=== PATIENT | male | born 1955 | race Caucasian/White ===

== ENCOUNTER 2022-12-19 18:38 | Emergency (ER) | payer MEDICARE, SELFPAY ==
--- NOTE | ~2022-12-19 | XR_ITS ---
EXAMINATION: XR chest 1V portable DATE: 12/19/2022 19:51 INDICATION: 12/19/2022 TECHNIQUE: frontal view of the chest was obtained with repeat frontal view obtained with alon marke rs. COMPARISON: None FINDINGS: Minimal linear discoid atelectasis/scarring at the bilateral lung bases. No other airspace opacities, pulmonary edema, pleural effusion or pneumothorax. Nipple shadow projects between the anterior left fifth and sixth ribs. The cardiomediastinal silhouette is normal. Moderate thoracic spondylosis. IMPRESSION: 1. No acute cardiopulmonary disease. Reviewed, dictated and finalized at location A.
--- NOTE | 2022-12-19 18:39 | ECG_ITS ---
Measurements Intervals Wing Rate: 90 P: 34 KS: 171 QRS: 11 QRSD: 95 T: 57 QT: 352 QTc: 431 Interpretive Statements SINUS RHYTHM ATRIAL PREMATURE COMPLEX INCOMPLETE RIGHT BUNDLE BRANCH BLOCK CONSIDER INFERIOR INFARCT, AGE INDETERMINATE BASELINE ARTIFACT- II, III, AVR, AVF ABNORMAL ECG NO PREVIOUS ECG AVAILABLE FOR COMPARISON Electronically Signed On 12-19-2022 18:54:09 CDT by Latrell Arnold D.O.
[2022-12-19 18:41] VITALS: BP 139/89; PULSE 88; RESP 22; TEMP 36.3; O2SAT 100
[2022-12-19 19:00] LABS: Basophils Percent Auto 0.4 % (0.2-1.2); Eosinophils Absolute Auto 0.2 K/mm3 (0-0.3); Eosinophils Percent Auto 2.3 % (0-4.4); Hematocrit 44.8 % (42.0-52.0); Hemoglobin 15.6 g/dL (14.0-18.0); Immature Granulocyte Absolute 0.04 K/mm3 (0.00-0.031); Immature Granulocyte Percent A 0.4 % (0-0.5); Lymphocytes Absolute Auto 3.73 K/mm3 (0.9-3.2); Lymphocytes Percent Auto 37.4 % (18.3-44.2); Mean Corpuscular HGB Conc 34.8 g/dl (32-36); Mean Corpuscular Hemoglobin 31.6 pg (26-34); Mean Corpuscular Volume 90.7 fl (80-100); Mean Platelet Volume 9.3 fl (7.4-10.4); Monocytes Absolute Auto 0.3 K/mm3 (0.1-0.6); Monocytes Percent Auto 3.2 % (2.6-8.5); Neutrophils Absolute Auto 5.6 K/mm3 (1.3-6.7); Neutrophils Percent Auto 56.3 % (45.5-73.1); Platelet Count Result 213 k/mm3 (150-375); Red Blood Count 4.94 M/mm3 (4.6-6.20); Red Cell Distribution Width 12.6 % (11.5-14.5)
[2022-12-19 19:09] LABS: Alanine Aminotransferase 33 U/L (6-50); Albumin Level 4.8 g/dL (3.5-5.1); Alkaline Phosphatase 83 U/L (38-126); Anion Gap 9 mmol/L (8-16); Aspartate Amino Transferase 36 U/L (17-59); Bilirubin,Total 0.5 mg/dL (0.2-1.3); Blood Urea Nitrogen 19 mg/dL (9-20); Calcium 9.3 mg/dL (8.4-10.2); Carbon Dioxide 28 mmol/L (22-30); Chloride 100 mmol/L (98-107); Estimated CRCL calculation 84 ml/min; Estimated Glomerular Filt Rate > 60; Glucose 111 mg/dL (65-110); Potassium 3.9 mmol/L (3.4-5.0); Sodium 137 mmol/L (137-145)
[2022-12-19] MEDS: SODIUM CHLORIDE 0.9% IV 2,000 ML 999 ML IV CONT (19:15)
[2022-12-19 19:34] LABS: NT Pro B Type Natriuretic Pept < 20 pg/mL (19.9-100); Troponin I < 0.012 ng/mL (0.000-0.034)
--- NOTE | 2022-12-19 19:39 | ED.GENADULT ---
HPI - General Adult General Chief complaint: Syncope Stated complaint: near syncope Time Seen by Provider: 12/19/22 18:56 History of Present Illness HPI narrative: This is a 67-year-old male presenting ED with a chief complaint of syncope. Patient says that he got up to go to the bathroom as he felt like he was going to have diarrhea. When he got to the bathroom he had an episode of diarrhea but then also felt nauseous. He then believes that he fainted on the toilet. It took him a couple minutes but then he quickly returned to baseline. At this time his only complaint is subjective shortness of breath. the patient notes that he did give a double dose of blood on Wednesday. He has then been working out in the sun and 100 degree heat the last 2 days and has not had anything to eat today outside of some cashews. He is denying fever, chills, chest pain, difficulty breathing, abdominal pain. Related Data Allergies Allergy/AdvReac Type Severity Reaction Status Date / Time No Known Allergies Allergy Unverified 08/22/18 19:56 [facility] Past Medical History Medical History (Updated 12/19/22 @ 19:46 by Ephraim Owens MD) Hypertension Exam Narrative: APPEARANCE: No apparent distress. Well-appearing Head: atraumatic. EYES: EOMI, NOSE: Atraumatic NECK: Trachea midline RESPIRATORY: No increased rate of breathing clear to auscultation CARDIOVASCULAR: RRR, no peripheral edema ABDOMINAL: Non-distended soft no guarding rebound MUSCULOSKELETAl: No obvious deformities NEURO: Alert. Moving 4/4 extremities SKIN:: Warm, dry. Normal color PSYCHIATRIC: Normal affect Course Vital Signs Vital signs: Vital Signs Temperature 97.3 F L 12/19/22 18:41 Pulse Rate 88 12/19/22 18:41 Respiratory Rate 22 H 12/19/22 18:41 Blood Pressure 139/89 12/19/22 18:41 Pulse Oximetry 100 12/19/22 18:41 Oxygen Delivery Room Air 12/19/22 18:41 Temperature 97.3 F L 12/19/22 18:41 Pulse Rate 88 12/19/22 18:41 Respiratory Rate 22 H 12/19/22 18:41 Blood Pressure 139/89 12/19/22 18:41 Pulse Oximetry 100 12/19/22 18:41 Oxygen Delivery Room Air 12/19/22 18:47 Medical Decision Making MDM Narrative Medical decision making narrative: -Presentation: 67-year-old male presenting with syncopal event on the toilet. Over last several days he has multiple reasons to be dehydrated including giving blood, working out in 100 degree heat and not eating today. He was concerned about his heart. Will do a cardiac lab work EKG chest x-ray and fluid rehydration and then reassess the patient. 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 Metabolic panel unremarkable. Troponin is undetectable x2. BNP undetectable. viral swabs negative. Chest x-ray unremarkable. -Discussion of Management/Consultants: None -Dx tests considered but not ordered: none -Procedures: none -Interventions: 2 L normal saline -Shared decision making / Disposition: patient's workup was negative. He is rehydrated here in the emergency department and is feeling better. This time comfortable discharging home with primary care follow-up. He has been instructed to drink plenty of fluids as he is likely dehydrated. He should return if his condition is to worsen. -RX Vital Signs Vital Signs: Vital Signs Temperature 97.3 F L
[2022-12-19 19:57] LABS: Influenza A QL RT-PCR Negative (Negative); Influenza B QL RT-PCR Negative (Negative); RSV RNA, RT-PCR Negative (Negative); SARS-CoV-2 RNA PCR Negative (Negative)
[2022-12-19 21:53] LABS: Troponin I < 0.012 ng/mL (0.000-0.034)
[2022-12-19 22:18] VITALS: BP 130/81; PULSE 94; RESP 17; O2SAT 97
== END 2022-12-19 22:20 | disposition home or self-care (01) ==
PROVIDERS: Emergency Medicine; Emergency Provider Emergency Medicine; PCP Family Medicine
DX: E86.0 Dehydration (principal); I95.1 Orthostatic hypotension; Z20.822 Contact with and (suspected) exposure to COVID-19; I10 Essential (primary) hypertension; R06.02 Shortness of breath; I49.1 Atrial premature depolarization; I45.10 Unspecified right bundle-branch block; R94.31 Abnormal electrocardiogram [ECG] [EKG]
CPT/HCPCS: 36415; 71045; 80053; 83880; 84484; 85025; 87637; 93005; 96360; 96361; 99284; J7030

== ENCOUNTER → 2023-01-19 09:11 | Outpatient (CLI) | payer MEDICARE, SELFPAY ==
--- NOTE | ~2023-01-19 | US_ITS ---
EXAMINATION: US aorta [facility] DATE: 01/19/2023 09:21 INDICATION: Abdominal aortic aneurysm screening TECHNIQUE: Grayscale, color Doppler, and pulsed Doppler images of the aorta and common iliac arteries were obtained. COMPARISON: None. FINDINGS: The proximal aorta measures 2.6 cm. The mid aorta measures 2.2 cm. The distal aorta measures 2.1 cm. The right common iliac artery measures 1.3 cm. The left common iliac artery measures 1.3 cm. IMPRESSION: 1. Normal caliber abdominal aorta. Reviewed, dictated and finalized at location L.
== END ==
PROVIDERS: PCP Nurse Practitioner Family; Visit Provider Nurse Practitioner Family
DX: Z13.6 Encounter for screening for cardiovascular disorders (principal)
CPT/HCPCS: 76706